=== PATIENT | female | born 1945 | race American Indian/Alaskan Native ===

== ENCOUNTER 2017-04-30 06:30 | Day surgery (SDC) | payer MEDICARE ==
[2017-04-30] MEDS ORDERED: Propofol 10 mg/ml Inj (20 ML) ONE (08:47)
--- NOTE | 2017-04-30 08:49 | CP.SDSHP ---
Same Day Surgery H & P - History Proposed Procedure: Screening colonoscopy - Previous Medical/Surgical History Cardiac: Hypertension - Allergies Allergies: Allergies No Known Allergies Allergy (Verified 04/30/17 06:59) - Current Medications Current Medications: See reconciliation sheet - Physical Exam General Appearance: WD WN female in NAD Vital Signs: Vital Signs 04/30/17 04/30/17 06:45 08:30 Temperature 98.2 F 98.2 F Pulse Rate 61 61 Respiratory 19 19 Rate Blood Pressure 149/70 149/70 O2 Sat by Pulse 99 99 Oximetry Mental Status: Alert & Oriented x3 Neuro: WNL Heart: WNL Lungs: WNL GI: WNL - {Optional Preform as Required} Abdomen: WNL - Impression Impression: Screening for colon cancer Pt. Evaluated Today:Candidate for Anesthesia & Procedure: Yes - Date & Time Date: 04/30/17 Time: 08:49 Short Stay Discharge - Short Stay Discharge Admitting Diagnosis/Reason for Visit: SCREENING Disposition: HOME/ ROUTINE
[2017-04-30 09:42] VITALS: TEMP 97.1
[2017-04-30 10:37] VITALS: BP 165/73; PULSE 65; RESP 18; O2SAT 98
== END 2017-04-30 10:20 | disposition home or self-care (01) ==
LOC: C.ENDO 06:30
PROVIDERS: ATTEND Internal Medicine Gastroenterology
DX: K57.30 Diverticulosis of large intestine without perforation or abscess without bleeding (principal); K64.8 Other hemorrhoids; D12.6 Benign neoplasm of colon, unspecified
CPT/HCPCS: 45385; 82948; 88305; J2704